=== PATIENT | male | born 1980 | race Caucasian/White ===

== ENCOUNTER 2017-03-12 21:11 | Observation (INO) | payer MEDICARE ==
[~2017-03-12] VITALS: Ht 172.7 cm; Wt 109.0 kg
[2017-03-12 22:55] LABS: RED BLOOD COUNT 5.39 M/UL (4.20-5.50); WHITE BLOOD COUNT 9.8 K/UL (4.5-11.0)
[2017-03-12 23:16] LABS: BUN/CREATININE RATIO 19 (0-10)
[2017-03-13] MEDS ORDERED: XARELTO20 MG PO (02:53)
[2017-03-13] MEDS ORDERED: FERROUS SULFAT325 MG PO (03:09)
[2017-03-13] MEDS ORDERED: VYVANSE70 MG PO (03:09)
[2017-03-13] MEDS ORDERED: NEURONTIN 400400 MG PO (03:09)
[2017-03-13] MEDS ORDERED: CELEXA20 MG PO (03:10)
[2017-03-13] MEDS ORDERED: ZOFRAN 8 MG TAB8 MG PO (03:10)
[2017-03-13] MEDS ORDERED: SUBOXONE 8 MG-1 EACH SL (03:11)
[2017-03-13] MEDS ORDERED: TRAZODONE HCL50 MG PO (03:11)
[2017-03-13] MEDS ORDERED: LYRICA150 MG PO (03:13)
[2017-03-13 04:39] LABS: HEMOGLOBIN 14.6 gm/dl (14.0-17.5); RED BLOOD COUNT 5.01 M/UL (4.20-5.50); WHITE BLOOD COUNT 7.5 K/UL (4.5-11.0)
[2017-03-13 04:58] LABS: BUN/CREATININE RATIO 17 (0-10)
== END 2017-03-14 12:51 | disposition home or self-care (01) ==
LOC: ER1 21:11 → ZEROF 03-13 00:05 → MED SURG 4 03-13 00:05
PROVIDERS: Internal Medicine; Student in an Organized Health Care Education/Training Program; ADMIT Hospitalist
DX: R31.0 Gross hematuria (principal); G89.29 Other chronic pain; G81.94 Hemiplegia, unspecified affecting left nondominant side; F17.210 Nicotine dependence, cigarettes, uncomplicated; Z86.711 Personal history of pulmonary embolism; Z79.01 Long term (current) use of anticoagulants; Z79.899 Other long term (current) drug therapy; Z86.73 Personal history of transient ischemic attack (TIA), and cerebral infarction without residual deficits; Z88.2 Allergy status to sulfonamides; Z88.8 Allergy status to other drugs, medicaments and biological substances
CPT/HCPCS: 36415; 70450; 70551; 80048; 80053; 80307; 81001; 82550; 82553; 83874; 84484; 85025; 85610; 85730; 87086; 93005; 99285; G0378; G0480; J2060; J2270